=== PATIENT | female | born 1950 | race Hispanic/Latino ===

== ENCOUNTER 2018-03-14 11:27 | Emergency (ER) | payer MEDICARE, OTHER ==
[2018-03-14 11:33] VITALS: O2SAT 99
[2018-03-14] MEDS ORDERED: Oxycodone/Acetaminophen 5/325 mg Tab PO ONE (12:08)
[2018-03-14] MEDS ORDERED: Oxycodone/Acetaminophen 5/325 mg Tab ONE (12:15)
--- NOTE | 2018-03-14 12:59 | ED PDOC ---
Upper Extremity Pain/Injury Time Seen by Provider: 03/14/18 11:59 Chief Complaint (Nursing): Upper Extremity Problem/Injury Chief Complaint (Provider): Right shoulder pain History Per: Patient History/Exam Limitations: no limitations Onset/Duration Of Symptoms: Hrs (x1) Current Symptoms Are (Timing): Still Present Quality: "Pain" Additional Complaint(s): Justina Cast is a 67 year old female, with a past medical history of thyroid surgery, osteoporosis, and arthritis, who was brought to the emergency department via EMS for right shoulder pain s/p fall onset x1 hr [employer]. Patient reports she was at home walking when she slipped on the floor's uneven rubber surface and fell on her right shoulder. She developed severe pain and has not been able to move it since. Patient also developed pain to left hand. She denies any loss of consciousness, head injury, or other injuries. No further medical complaints. PMD: [facility] Past Medical History Reviewed: Historical Data, Nursing Documentation, Vital Signs Vital Signs: Last Vital Signs Temp 97.7 F 03/14/18 11:31 Pulse 60 03/14/18 11:31 Resp 20 03/14/18 11:31 BP 115/58 L 03/14/18 11:31 Pulse Ox 99 03/14/18 11:31 - Medical History PMH: Arthritis, Osteoporosis - Surgical History Other surgeries: thyroid removal, elbow and wrist surgery - Family History Family History: States: No Known Family Hx - Home Medications Home Medications: Ambulatory Orders Medication Instructions Recorded oxyCODONE/Acetaminophen [Percocet 1 ea PO Q6 PRN #12 tab 03/14/18 5/325 mg Tab] - Allergies Allergies/Adverse Reactions: Allergies Allergy/AdvReac Type Severity Reaction Status Date / Time No Known Allergies Allergy Verified 03/14/18 11:40 Review of Systems ROS Statement: Except As Marked, All Systems Reviewed And Found Negative Musculoskeletal: Positive for: Shoulder Pain (right), Hand Pain (left hand) Physical Exam - Reviewed Nursing Documentation Reviewed: Yes Vital Signs Reviewed: Yes - Physical Exam Appears: Positive for: Non-toxic Head Exam: Positive for: ATRAUMATIC, NORMOCEPHALIC Skin: Positive for: Normal Color, Warm, Dry Eye Exam: Positive for: Normal appearance, EOMI, PERRL Neck: Positive for: Painless ROM, Supple Cardiovascular/Chest: Positive for: Regular Rate, Rhythm. Negative for: Murmur Respiratory: Positive for: Normal Breath Sounds. Negative for: Respiratory Distress Pulses-Radial (L): 2+ Pulses-Radial (R): 2+ Gastrointestinal/Abdominal: Positive for: Normal Exam, Soft. Negative for: Tenderness, Guarding, Rebound Back: Negative for: L CVA Tenderness, R CVA Tenderness, Vertebral Tenderness Extremity: Positive for: Tenderness (Left hand dorsum abrasions, edema and tenderness but full ROM. Left wrist normal), Other (Skin intact, normal radial and ulnar pulses. Right wrist and elbow normal.). Negative for: Normal ROM ( limited ROM to right shoulder), Deformity (right shoulder), Swelling (right shoulder) Neurologic/Psych: Positive for: Alert, Oriented. Negative for: Motor/Sensory Deficits - ECG O2 Sat by Pulse Oximetry: 99 (RA) Pulse Ox Interpretation: Normal - Progress Re-evaluation Time: 13:50 Condition: Re-examined, Improved Medical Decision Making Medical Decision Making: Time: 11:59 Initial Impression: right shoulder injury r/o fracture. Left hand injury r/o fracture. Initial Plan: --Ext Upper w/o contrast [CT] --Orthopedic Consult --Percocet 5/325 mg tab 1 tab PO --Hand left 3 views routine [RAD] --Shoulder right [RAD] --Reevaluation 12:40 -Shoulder X-Ray show displaced comminuted humeral head fracture. -Hand X-Ray shows 4th metacarpal bone fracture, transverse on left hand. Minimal displacement and angulation. 12:50 -Spoke with Dr. Campos for consult, who wants CT and ortho PA to evaluate patient. Dr. Campos will take consult for left hand fracture. Recommends splint for the hand and shoulder. He does recommends patient to be admitted for surgical repair. 13:00 -Spoke with patient who doesn't want to stay in hospital and wants to leave and follow up with ortho at [facility]. 13:04 Shoulder X-Ray FINDINGS: BONES: Comminuted, angulated, mildly displaced fracture of right humeral head. No dislocation. Possible mild overriding. JOINTS: Glenohumeral articulation intact. Acromioclavicular articulation shows mild degenerative arthritis. SOFT TISSUES: Normal. OTHER FINDINGS: None. IMPRESSION: Comminuted, angulated mildly displaced fracture right humeral head. 13:04 Left hand X-Ray FINDINGS: BONES: Nondisplaced transverse fracture mid 4th metacarpal. No other fracture identified. JOINTS: Normal. No osteoarthritic changes. SOFT TISSUES: Normal. OTHER FINDINGS: None. IMPRESSION: Nondisplaced transverse fracture mid 4th metacarpal. 13:50 -Patient was placed on sling/immobilizer for shoulder and hand ulnar gutter splint by JOANNA Medina. 1405 Post splint exam. NV intact right and left hands. 1350 Patient seen in ED by Beth. Since patient does not wish surgery she is stable for discharge as per Dr Campos. Patient wishes to follow up with an orthopedist at [place]. Patient is been stabilized for this emergency condition. There are no indications for EMTALA compliant emergent transfer. Patient refuses surgery and admission at [facility]. She is medically stable for discharge. ----- Scribe Attestation: Documented by Richie Garzon, acting as a scribe for Lawrence Grier MD. Provider Scribe Attestation: All medical record entries made by the Scribe were at my direction and personally dictated by me. I have reviewed the chart and agree that the record accurately reflects my personal performance of the history, physical exam, medical decision making, and the department course for this patient. I have also personally directed, reviewed, and agree with the discharge instructions and disposition. Disposition - Clinical Impression Clinical Impression: Fracture, humerus closed, Fracture, metacarpal shaft - Patient ED Disposition Is Patient to be Admitted: No Doctor Will See Patient In The: Office Counseled Patient/Family Regarding: Studies Performed, Diagnosis, Need For Followup - Disposition Referrals: Adam Campos III, MD [Staff Provider] - Disposition: Routine/Home Disposition Time: 13:55 Condition: GOOD Additional Instructions: Follow up with your orthopedist within 2 days. Prescriptions: oxyCODONE/Acetaminophen [Percocet 5/325 mg Tab] 1 ea PO Q6 PRN #12 tab PRN Reason: Pain, Severe (8-10) Instructions: Hand Fracture, Upper Arm Fracture
--- NOTE | 2018-03-14 13:06 | RAD ---
PROCEDURE: Radiographs of the Right Shoulder HISTORY: shoulder pain injury COMPARISON: No prior. FINDINGS: BONES: Comminuted, angulated, mildly displaced fracture of right humeral head. No dislocation. Possible mild overriding. JOINTS: Glenohumeral articulation intact. Acromioclavicular articulation shows mild degenerative arthritis. SOFT TISSUES: Normal. OTHER FINDINGS: None. IMPRESSION: Comminuted, angulated mildly displaced fracture right humeral head.
--- NOTE | 2018-03-14 13:06 | RAD ---
PROCEDURE: Left Hand Radiographs. HISTORY: left hand pain injury COMPARISON: None. FINDINGS: BONES: Nondisplaced transverse fracture mid 4th metacarpal. No other fracture identified. JOINTS: Normal. No osteoarthritic changes. SOFT TISSUES: Normal. OTHER FINDINGS: None. IMPRESSION: Nondisplaced transverse fracture mid 4th metacarpal.
--- NOTE | 2018-03-14 14:05 | CP.PCM.CON ---
History of Present Illness - History of Present Illness History of Present Illness: Patient is a 67 y/o female with no PMH who was brought by ambulance following a right shoulder and left hand injury at home. The patient describes a mechanical fall while tripping over footing, landing forward onto her right shoulder and left hand sustaining fracture to both. She denies dizziness prior to fall and LOC. Dr. Campos was consulted for evaluation of her right shoulder and left hand. Currently, her right shoulder pain is controlled with medications. She describes the pain as dull, aching and intermittent. The pain occurs with movement and is alleviated when at rest. She denies radiation of pain, numbness and tingling. The pain in her left hand is minimal and dull in quality. She is able to move her fingers without pain. She also denies CP/ SOB/N/V/D/fever/dysuria/melena. Review of Systems - Review of Systems All systems: reviewed and no additional remarkable complaints except Review of Systems: as per HPI Past Patient History - Past Medical History & Family History Past Family History: Reviewed and not pertinent - Past Social History Smoking Status: Never Smoked Alcohol: None Drugs: Denies - CARDIAC Hx Cardiac Disorders: No - PULMONARY Hx Respiratory Disorders: No - NEUROLOGICAL Hx Neurological Disorder: No - HEENT Hx HEENT Problems: No - RENAL Hx Chronic Kidney Disease: No - ENDOCRINE/METABOLIC Hx Endocrine Disorders: No - HEMATOLOGICAL/ONCOLOGICAL Hx Blood Disorders: No - INTEGUMENTARY Hx Dermatological Problems: No - MUSCULOSKELETAL/RHEUMATOLOGICAL Hx Arthritis: Yes Hx Osteoporosis: Yes - GASTROINTESTINAL Hx Gastrointestinal Disorders: No - GENITOURINARY/GYNECOLOGICAL Hx Genitourinary Disorders: No - PSYCHIATRIC Hx Psychophysiologic Disorder: No - SURGICAL HISTORY Hx Surgeries: Yes Hx Orthopedic Surgery: Yes (L wrist CRPP, L elbow CRPP) Hx Thyroidectomy: Yes (partial) - ANESTHESIA Hx Anesthesia: Yes Hx Anesthesia Reactions: No Meds Home Medications: Home Medication List Medication Instructions Recorded Confirmed Type oxyCODONE/Acetaminophen [Percocet 1 ea PO Q6 PRN #12 tab 03/14/18 Rx 5/325 mg Tab] Allergies/Adverse Reactions: Allergies Allergy/AdvReac Type Severity Reaction Status Date / Time No Known Allergies Allergy Verified 03/14/18 11:40 - Medications Medications: none Physical Exam - Constitutional Appears: Well, No Acute Distress - Head Exam Head Exam: ATRAUMATIC, NORMOCEPHALIC - Eye Exam Eye Exam: EOMI, Normal appearance, PERRL - ENT Exam ENT Exam: Mucous Membranes Moist, Normal Exam - Respiratory Exam Respiratory Exam: Clear to Auscultation Bilateral, NORMAL BREATHING PATTERN - Cardiovascular Exam Cardiovascular Exam: REGULAR RHYTHM - GI/Abdominal Exam GI & Abdominal Exam: Normal Bowel Sounds, Soft - Neurological Exam Neurological exam: Alert, Oriented x3 - Psychiatric Exam Psychiatric exam: Normal Affect, Normal Mood - Skin Skin Exam: Normal Color, Warm Results - Vital Signs Recent Vital Signs: Last Vital Signs Temp 97.7 F 03/14/18 11:31 Pulse 60 03/14/18 11:31 Resp 20 03/14/18 11:31 BP 115/58 L 03/14/18 11:31 Pulse Ox 99 03/14/18 13:53
--- NOTE | 2018-03-14 14:10 | CP.PCM.CON ---
History of Present Illness - History of Present Illness History of Present Illness: ID: 67 yo female CC: severe pain and restricted rom R shoulder/pain L hand HPI: 67 yo female presents with pain and restricted ROM R shouklder after fall on outstretched R upper extremity and L hand Pt presents after a mechanical fall at hole, and presetns to ER at [facility] Pt seen with herhusband and son at the encounter Pt with severe pain and restricted ROM R shoulder and L hand Xrasy obtained, reveal 3 to 4 part fx R proximal humerus/ tyransverse fx L 4th MCP Review of Systems - Hematologic/Lymphatic Additional comments: ROS No loc/ Past Patient History - MUSCULOSKELETAL/RHEUMATOLOGICAL Hx Arthritis: Yes Hx Osteoporosis: Yes Meds Home Medications: Home Medication List Medication Instructions Recorded Confirmed Type oxyCODONE/Acetaminophen [Percocet 1 ea PO Q6 PRN #12 tab 03/14/18 Rx 5/325 mg Tab] Allergies/Adverse Reactions: Allergies Allergy/AdvReac Type Severity Reaction Status Date / Time No Known Allergies Allergy Verified 03/14/18 11:40 Physical Exam - Additional Findings Additional findings: Physical exam systemic- grossly wnl 0 focal neurologic deficits pt in discomfort at jareth of eval Musculoskekltal stance/gait- defrred \ R upper ext immobilized in sling L wrist splint applied Results - Vital Signs Recent Vital Signs: Last Vital Signs Temp 97.7 F 03/14/18 11:31 Pulse 60 03/14/18 11:31 Resp 20 03/14/18 11:31 BP 115/58 L 03/14/18 11:31 Pulse Ox 99 03/14/18 13:53 - Impressions Impression: Imaging R Shoulder osteopenia/pathologic fx 3 to 4 part fx R proximal humerus L hand- transverse fx L 4th metacarpal Assessment & Plan - Assessment and Plan (Free Text) Assessment: A- multiple trauma 3 to 4 part fx r prox humerus transverse fx L 4th metacarpP_ situation discussed at length with pt, her and her son - pt wishes to be transferred for f/u to [facility] pro's cons risks and benefits discussed at length with the pt and her
[2018-03-14 15:37] VITALS: BP 123/68; PULSE 76; RESP 18; TEMP 97.9
== END 2018-03-14 14:50 | disposition home or self-care (01) ==
LOC: H.ER 11:27
DX: S49.91XA Unspecified injury of right shoulder and upper arm, initial encounter (principal); S69.92XA Unspecified injury of left wrist, hand and finger(s), initial encounter; W19.XXXA Unspecified fall, initial encounter; Y92.89 Other specified places as the place of occurrence of the external cause; M81.0 Age-related osteoporosis without current pathological fracture